=== PATIENT | female | born 1980 | race Caucasian/White ===

== ENCOUNTER 2021-06-29 13:58 | Outpatient (REF) | payer OTHER, SELFPAY ==
--- NOTE | ~2021-06-29 | XR_ITS ---
EXAMINATION: XR KNEE, LEFT CLINICAL INFORMATION: Knee pain COMPARISON: None TECHNIQUE: Four views of the left knee. FINDINGS: Bones and soft tissues are normal. No fracture or joint effusion. Alignment is anatomic. Joint spaces are well maintained. Mild lateral patellar tilt. No abnormal soft tissue calcification. XR/XR knee LT 4V IMPRESSION: No acute osseous abnormality
== END 2021-06-29 13:59 | disposition home or self-care (01) ==
LOC: HO.XRAY 13:58
PROVIDERS: PCP Physician Assistant; Visit Provider Nurse Practitioner Family
DX: M25.562 Pain in left knee (principal)
CPT/HCPCS: 73564

== ENCOUNTER 2021-07-25 13:00 | Outpatient (RCR) | payer OTHER, SELFPAY ==
--- NOTE | 2021-08-22 08:56 | MHC.PT.DC ---
[facility] [place] Office [place] Office [place] Office [address] Ev Walker [address] [phone] F: [phone] F: [phone] F: [phone] F: [phone] Physical Therapy Discharge Report Diagnosis: CERVICALGIA Date of Surgery: NA Date of Evaluation: 07/11/21 Date of Discharge: 08/22/21 Treatments to Date: 2 Cancellations to Date: 3 No Shows to Date: Discharge Status: Recommend MD Follow-up Visit Non-compliance Discharge Summary: Pt SEEN FOR INIT EVAL, THEN 2 CX THEN 1 FU (PER THAT ASSESSMENT...GOOD PERF STRETCHES/EXS, RELIEF WITH ST ROLLING. OF NOTE SIGNIF CIGARETTE SMELL WITH Pt COUGHING DURING SESSION). THEN ANOTHER CX. WILL DC DUE TO ATTENDANCE POLICY Electronically signed by: LUCY SANDERSON PT Please sign and return to therapist. Thank you for your referral.
== END 2021-08-22 08:57 | disposition home or self-care (01) ==
LOC: HO.PTWFD 13:00
PROVIDERS: PCP Physician Assistant; Visit Provider Nurse Practitioner Family
DX: M54.2 Cervicalgia (principal)
CPT/HCPCS: 97110; 97140; 97161; 97535

== ENCOUNTER 2021-08-08 13:39 | Outpatient (REF) | payer OTHER, SELFPAY ==
--- NOTE | ~2021-08-08 | MM_ITS ---
EXAMINATION: MM SCREENING DIGITAL BREAST TOMOSYNTHESIS, BILATERAL CLINICAL INFORMATION: Screening. Asymptomatic. Family history breast cancer, mother. The lifetime risk of breast cancer based on the Tyrer-Cuzick Model is 17%. COMPARISON: Mammography: 01/13/2019 (BI-RADS 3), 01/05/2019 (baseline). TECHNIQUE: Digital breast tomosynthesis is performed in both the craniocaudal and mediolateral oblique views along with computer-aided detection (CAD). Synthesized 2D images are generated from the tomosynthesis. FINDINGS: The breasts are heterogeneously dense, which may obscure small masses (ACR BI-RADS breast composition Category c). Parenchymal pattern is similar to prior studies. There is no significant mass or architectural abnormality. There are bilateral nipple piercings. The axilla are unremarkable. Numerous calcifications are again seen predominantly upper outer quadrant, more numerous on the left. Prior mammography included subsequent magnification views with recommendation for follow-up. Patient will be requested to return for additional magnification views to allow for comparison with the prior diagnostic exam. MM/MM tomosynthesis screening BI IMPRESSION: Bilateral regional calcifications, more numerous on left. ASSESSMENT: BI-RADS 0: Incomplete - Need Additional Imaging Evaluation RECOMMENDATION: 1. Additional views of the bilateral breasts (bilateral magnification CC and bilateral magnification ML). 2. Radiology department staff will contact the patient for additional imaging. This patient's information was entered into a reminder system with a target due date for their next mammogram.
== END 2021-08-08 13:40 | disposition home or self-care (01) ==
LOC: HO.MAMMO 13:39
PROVIDERS: PCP Physician Assistant; Visit Provider Nurse Practitioner Family
DX: Z12.31 Encounter for screening mammogram for malignant neoplasm of breast (principal)
CPT/HCPCS: 77063; 77067

== ENCOUNTER 2021-08-13 14:18 | Outpatient (REF) | payer OTHER, SELFPAY ==
--- NOTE | ~2021-08-13 | MM_ITS ---
EXAMINATION: MM DIAGNOSTIC DIGITAL MAMMOGRAPHY, BILATERAL CLINICAL INFORMATION: Recall from screening for probable bilateral benign calcifications initially noted at baseline exam 2019. Family history breast cancer, mother age 57. TC score 17%. COMPARISON: Mammography: 04/07/2022, 01/13/2019 (BI-RADS 3), 01/05/2019 (BI-RADS 0, baseline). TECHNIQUE: Digital mammography is performed in the following views: Magnification right CC x2, magnification right ML x2, magnification left CC x2, magnification left ML x2. FINDINGS: The breasts are heterogeneously dense, which may obscure small masses (ACR BI-RADS breast composition Category c). The magnification views show numerous calcifications similar in number and distribution to the initial bilateral diagnostic mammography 01/13/2019. Calcifications are predominantly central upper outer quadrant. They are more numerous on the left. Some of the calcifications show layering milk of calcium. There are no interval increasing calcifications or interval pleomorphic types or ductal distribution. Calcifications are now considered to be benign. Results are discussed with the patient at time of visit. MM/MM diagnostic mammo BI IMPRESSION: Numerous bilateral calcifications similar to prior diagnostic exam 2019. ASSESSMENT: BI-RADS 2: Benign RECOMMENDATION: Routine annual mammography screening. This patient's information was entered into a reminder system with a target due date for their next mammogram.
== END 2021-08-13 14:19 | disposition home or self-care (01) ==
LOC: HO.MAMMO 14:18
PROVIDERS: Visit Provider Nurse Practitioner Family
DX: R92.1 Mammographic calcification found on diagnostic imaging of breast (principal)
CPT/HCPCS: 77066

== ENCOUNTER 2021-09-27 14:27 | Outpatient (REF) | payer OTHER, SELFPAY ==
--- NOTE | ~2021-09-27 | XR_ITS ---
EXAMINATION:XR cervical spine 3V CLINICAL INFORMATION: Cervalgia COMPARISON: None TECHNIQUE: Frontal lateral and swimmer's view and open-mouth odontoid view. FINDINGS: 7 cervical vertebrae identified maintaining normal height and alignments.. Loss of normal cervical lordosis probably spasm. Narrowing of intervertebral disc spaces at C5-C6 and C6-C7 suggests underlying mild to moderate degenerative disc disease. No prevertebral soft tissue swelling. Surrounding soft tissue and included lung apices are clear. Included lung apices are clear. XR/XR cervical spine 3V IMPRESSION: 1. No fracture. 2. Narrowing of intervertebral disc spaces suggest underlying degenerative disc disease.. 3. Loss of normal cervical lordosis probably spasm.
[2021-09-27 14:45] LABS: MANUAL DIFF FLAG NO
[2021-09-27 14:57] LABS: Basophils Absolute Auto 0.1 X10*3/uL (0.0-0.2); Eosinophils Absolute Auto 0.3 X10*3/uL (0.0-0.4); Eosinophils Percent Auto 3.5 % (0-4); Hematocrit 37.3 % (37.0-47.0); Hemoglobin 12.1 g/dl (12.0-16.0); Imm Gran Abs Auto 0.06 X10*3/uL (0.00-0.03); Imm Gran Pct Auto 0.6 % (0.0-0.4); Lymphocytes Absolute Auto 2.3 X10*3/uL (1.2-4.9); Lymphocytes Percent Auto 23.4 % (20-40); Mean Corpuscular HGB Conc 32.4 g/dl (31.0-35.0); Mean Corpuscular Hemoglobin 27.7 pg (27.0-33.0); Mean Corpuscular Volume 85.4 fL (80.0-98.0); Mean Platelet Volume 9.3 fL (9.4-12.3); Monocytes Absolute Auto 0.7 X10*3/uL (0.1-1.2); Monocytes Percent Auto 7.4 % (2-11); Neutrophils Absolute Auto 6.2 x10*3/uL (2.0-8.3); Neutrophils Percent Auto 64.1 % (45-73); Platelet Count 372 X10*3/uL (160-400); Red Blood Count 4.37 X10*6/uL (4.20-5.50); White Blood Count 9.6 X10*3/uL (4.8-10.8)
[2021-09-27 15:20] LABS: Alanine Aminotransferase 9 U/L (0-31); Albumin Level 4.2 g/dL (3.5-5.0); Alkaline Phosphatase 65 U/L (39-117); Anion Gap 15 (12-20); Aspartate Amino Transferase 14 U/L (5-31); Bilirubin Total 0.5 mg/dL (0.0-1.0); Blood Urea Nitrogen 8 mg/dL (9-16); Calcium 9.1 mg/dL (8.4-10.2); Carbon Dioxide 20 mmol/L (22-29); Chloride 108 mmol/L (96-108); Cholesterol 231 mg/dL; Estimated Glomerular Filt Rate > 60; Glucose Fasting 87 mg/dL (60-99); HDL Cholesterol 56 mg/dL; LDL Cholesterol Calculated 133 mg/dl; Potassium 4.1 mmol/L (3.3-5.1); Sodium 139 mmol/L (135-145); Total Protein 7.6 g/dL (6.5-8.0); Triglycerides 211 mg/dL
== END 2021-09-27 14:28 | disposition home or self-care (01) ==
LOC: HO.LAB 14:27
PROVIDERS: PCP Physician Assistant; Visit Provider Nurse Practitioner Family
DX: M54.2 Cervicalgia (principal); E78.00 Pure hypercholesterolemia, unspecified; I10 Essential (primary) hypertension
CPT/HCPCS: 36415; 72040; 80053; 80061; 85025

== ENCOUNTER 2021-11-02 09:42 | Outpatient (REF) | payer OTHER, SELFPAY ==
[2021-11-02 18:13] LABS: CT PCR NOT DETECTED (Not Detect.); NG PCR NOT DETECTED (Not Detect.)
[2021-11-03 13:51] LABS: BV Int Neg Control Negative (Negative); BV Int Pos Control Positive (Positive)
[2021-11-07 14:11] LABS: HPV mRNA E6/E7 rflx Not Detected (Not Detected)
== END 2021-11-02 09:43 | disposition home or self-care (01) ==
LOC: HO.LAB 09:42
PROVIDERS: PCP Physician Assistant; Visit Provider Advanced Practice Midwife
DX: Z01.411 Encounter for gynecological examination (general) (routine) with abnormal findings (principal); Z11.51 Encounter for screening for human papillomavirus (HPV); N92.0 Excessive and frequent menstruation with regular cycle; Z20.2 Contact with and (suspected) exposure to infections with a predominantly sexual mode of transmission; Z72.0 Tobacco use
CPT/HCPCS: 87480; 87491; 87510; 87591; 87624; 87660; 88142

== ENCOUNTER 2022-08-23 13:40 | Outpatient (REF) | payer OTHER, SELFPAY ==
--- NOTE | ~2022-08-23 | MM_ITS ---
EXAMINATION: MM SCREENING DIGITAL BREAST TOMOSYNTHESIS, BILATERAL CLINICAL INFORMATION: Screening. Asymptomatic. Family history breast cancer, mother. The lifetime risk of breast cancer based on the Tyrer-Cuzick Model is 17%. COMPARISON: Mammography: 08/13/2021, 08/08/2021, 07/16/2018, 01/05/2019 (baseline) TECHNIQUE: Digital breast tomosynthesis is performed in both the craniocaudal and mediolateral oblique views along with computer-aided detection (CAD). Synthesized 2D images are generated from the tomosynthesis. FINDINGS: The breasts are heterogeneously dense, which may obscure small masses (ACR BI-RADS breast composition Category c). There are numerous bilateral calcifications, similar to prior diagnostic exams. Right breast parenchymal pattern is similar to prior studies. The bilateral axilla and skin contours are unremarkable. There are bilateral nipple piercings. Left CC view has subtle nodular asymmetric density just lateral to midline upper quadrant on tomography possibly shifting fibroglandular tissue. Patient will be recalled for additional imaging to exclude developing density. MM/MM tomosynthesis screening BI IMPRESSION: Left: -Subtle nodular asymmetric density central outer breast on CC tomography, possibly shifting fibroglandular tissue. Right: -No significant changes from prior studies. ASSESSMENT: BI-RADS 0: Incomplete - Need Additional Imaging Evaluation RECOMMENDATION: 1. Additional views left breast (spot CC, rolled CC x2). 2. Targeted ultrasound if warranted after review of the additional views. 3. Radiology department staff will contact the patient for additional imaging. This patient's information was entered into a reminder system with a target due date for their next mammogram.
== END 2022-08-23 13:41 | disposition home or self-care (01) ==
LOC: HO.MAMMO 13:40
PROVIDERS: PCP Physician Assistant; Visit Provider Physician Assistant
DX: Z12.31 Encounter for screening mammogram for malignant neoplasm of breast (principal)
CPT/HCPCS: 77063; 77067

== ENCOUNTER 2022-09-19 13:25 | Outpatient (REF) | payer OTHER, SELFPAY ==
--- NOTE | ~2022-09-19 | MM_ITS ---
EXAMINATION: MM DIAGNOSTIC DIGITAL BREAST TOMOSYNTHESIS, LEFT US DIAGNOSTIC ULTRASOUND BREAST, LEFT CLINICAL INFORMATION: Recall from screening for subtle nodular asymmetric density central outer left breast on CC tomography. Family history breast cancer, mother. TC score 17%. COMPARISON: Mammography: 08/23/2022, 08/13/2021, 08/08/2021, 01/13/2019, 01/05/2019 (baseline) TECHNIQUE: Digital breast tomosynthesis is performed. 2D images are generated from the tomosynthesis. The following views are obtained: Rolled CC x2, spot CC. Ultrasound left breast is targeted to the upper and outer breast using grayscale imaging and color Doppler without and with harmonics. FINDINGS: The breasts are heterogeneously dense, which may obscure small masses (ACR BI-RADS breast composition Category c). The additional views suggest a small oval partly obscured nodule in the area for recall under 1 cm. No architectural abnormality. No focal duct ectasia. Ultrasound demonstrates scattered simple cysts, largest 0.8 cm corresponding to the nodularity on mammography. The cysts show increased through-transmission of sound and no associated solid component or color flow. There is no solid mass or architectural abnormality. Results are discussed with the patient at time of visit. MM/MM tomosynthesis added views L IMPRESSION: Incidental cysts, largest approximately 0.8 cm, corresponding to recent mammography. ASSESSMENT: BI-RADS 2: Benign RECOMMENDATION: Routine annual mammography screening. This patient's information was entered into a reminder system with a target due date for their next mammogram.
== END 2022-09-19 13:26 | disposition home or self-care (01) ==
LOC: HO.MAMMO 13:25
PROVIDERS: PCP Physician Assistant; Visit Provider Physician Assistant
DX: R92.2 Inconclusive mammogram (principal)
CPT/HCPCS: 76642; 77061; 77065

== ENCOUNTER 2023-08-29 13:59 | Outpatient (REF) | payer OTHER, SELFPAY ==
--- NOTE | ~2023-08-29 | MM_ITS ---
EXAMINATION: MM SCREENING DIGITAL BREAST TOMOSYNTHESIS, BILATERAL CLINICAL INFORMATION: Screening. Asymptomatic. COMPARISON: Mammography: This study is compared with prior exams dating back to 2019. TECHNIQUE: Digital breast tomosynthesis is performed in both the craniocaudal and mediolateral oblique views along with computer-aided detection (CAD). Synthesized 2D images are generated from the tomosynthesis. FINDINGS: There are scattered areas of fibroglandular density (ACR BI-RADS breast composition Category b). There are no significant masses, abnormal calcifications, or other abnormalities. There are bilateral, unchanged, benign calcifications. The patient has bilateral nipple rings. MM/MM tomosynthesis screening BI IMPRESSION: No mammographic evidence of malignancy. ASSESSMENT: BI-RADS BI-RADS 2 - Benign Findings RECOMMENDATION: Routine annual mammography screening. 1 year F/U This examination should not preclude the clinical evaluation of a suspicious palpable abnormality. This patient's information was entered into a reminder system with a target due date for their next mammogram.
== END 2023-08-29 14:00 | disposition home or self-care (01) ==
LOC: HO.MAMMO 13:59
PROVIDERS: PCP Physician Assistant; Visit Provider Physician Assistant
DX: Z12.31 Encounter for screening mammogram for malignant neoplasm of breast (principal)
CPT/HCPCS: 77063; 77067

== ENCOUNTER → 2023-08-29 14:00 | Outpatient (BNV) | payer OTHER, SELFPAY | PROVIDERS: PCP Physician Assistant; Visit Provider Radiology Diagnostic Radiology | DX: Z12.31 Encounter for screening mammogram for malignant neoplasm of breast (principal) | CPT/HCPCS: 77063; 77067 ==

== ENCOUNTER 2024-05-05 16:12 | Outpatient (AMB) | payer OTHER, SELFPAY ==
--- NOTE | 2024-05-05 16:15 | A.OFFPC_ITS ---
Vital Signs 05/05/24 16:16 Height 5 ft 3 in Weight 160 lb 6 oz BMI 28.4 BP 100/78 Blood Pressure Location Lt brachial Position Sitting Pulse 98 Pulse Source Pulse Oximeter Pulse Oximetry (%) 70 L Oxygen Delivery Method Room Air Intake Visit Reasons: annual exam Dye Weigher Required: No Accompanied by: Self / Same As Patient Allergies banana Allergy (Severe, Verified 05/05/24 16:56) Hives bupropion [From Wellbutrin] Adverse Reaction (Mild, Verified 05/05/24 16:56) GI upset Medication List - Last Reconciled 05/05/24 by Rah Leiva MD No Known Home Meds Tobacco use date assessed: 05/05/24 Dental Screening Dental Screen Date: 05/05/24 Did you have a dental visit in the last 12 months?: No Did you have a dental problem in the last 6 months where you did not have access to dental care?: No Was dental information given to patient?: Patient has dentist HPI annual exam HPI Details Patient comes in today for her annual physical examination States that she has been experiencing increased pain in both feet for a while now - notes that the pain feels worse in the morning and is mostly localized near the heel areas She denies any recent injury or trauma to her foot She also continues to experience recurrent pain over several other joints often, including her elbows, wrists and knees - states that she has been experiencing recurrent joint pains for a few years now States that she feels okay otherwise She denies any headaches or dizziness Denies any chest pains, no increased SOB No nausea/vomiting, no abdominal pain No change in bowel habits noted She denies any acute urinary symptoms Adds that she has a hyperpigmented lesion on her left forearm that has been present for weeks now and she would like to see someone about having it removed if possible She would also like to get a referral to gynecology as she has not had her pap smear and gynecology exam done in a few years She had her mammography done back in August 2023 so she is up-to-date on her breast cancer screening [facility] Medical History Overweight (BMI 25.0-29.9) Smoker Surgical History History of facial surgery Hx of section Family History Mother Dementia Breast cancer Lung cancer Father Heart attack, Onset Age: 53 HTN (hypertension) Social History (Updated 05/09/24 @ 17:41 by Rah Leiva MD) Household Members: Significant Other Household Members Other:: 2 roomates Housing: House Alcohol intake: current Alcohol intake frequency: 0-2 drinks per day Alcohol type: wine and other Patient Tobacco Use Status: Current everyday Tobacco user Tobacco use type: Cigarette Cigarettes Per Day: 15 Years Smoked: 25 e-Cigarette/Vaping Use: Currently Using service: No Current occupational status: unemployed Cognitive needs: No Hearing needs: No Vision needs: No Female Reproductive History Menstrual Age of Menarche: 9 Questionnaire PHQ-9 Over the last 2 weeks, how often have you been bothered by any of the following problems? 1. Little interest or pleasure in doing things: more than half the days 2. Feeling down, depressed, or hopeless: more than half the days 3. Trouble falling or staying asleep, or sleeping too much: more than half the days 4. Feeling tired or having little energy: more than half the days 5. Poor appetite or overeating: more than half the days 6. Feeling bad about yourself - or that you are a failure or have let yourself or your family down: more than half the days 7. Trouble concentrating on things, such as reading the newspaper or watching television: more than half the days 8. Moving or speaking so slowly that other people could have noticed. Or the opposite - being so fidgety or restless that you have been moving around a lot more than usual: not at all 9. Thoughts that you would be better off or of hurting yourself in some way: not at all Total score: 14 Depression Screening Interpretation: Positive Depression Screening Follow-up: Existing condition and In treatment Depression Screening Done: Yes 98998 - PHQ-9 Billing: Yes Source: Developed by Drs. Jaime Rachel, Negin Talavera, Austin Malik and colleagues, with an educational mihai from [employer]. Thrive Questionnaire Date Thrive assessed: 05/05/24 I am a: Patient What is your living situation today?: I do not have a steady places to live I am staying at a hotel Within the past 12 months, did the food you bought not last and you didn't have the money to get more?: Sometimes True Within the past 12 months, did you worry whether your food would run out before you got money to buy more?: Sometimes True Do you have trouble paying for medicines?: No Do you have trouble getting transportation to medical appointments?: No Do you have trouble paying your heating and electricity bill?: Yes Do you have trouble taking care of your child, family member or friend?: I choose not to answer this question Do you have trouble with day-to-day activities such as bathing, preparing meals, shopping, managing finances, etc.?: No Are you currently unemployed and looking for a job?: No Are you interested in more education?: No Please select the resources that you would like help with: Housing/Group Home Currently or been in a relationship where the following occur: I choose not to answer THRIVE Score: 4 AUDIT C Alcohol Use Questionnaire (AUDIT-C) 1. How often do you have a drink containing alcohol?: 4 or more times a week 2. How many drinks containing alcohol do you have on a typical day when you are drinking?: 3 or 4 3. How often do you have six or more drinks on one occasion?: Never Total Score: 5 Score Reviewed/Action Taken: Yes [place]-7 AMB Questionnaire [place]-7 Date [place] - 7 assessed: 05/05/24 Feeling nervous, anxious, or on edge: 2 = More than half the days Not being able to stop or control worryin = More than half the days Worrying too much about different things: 2 = More than half the days Trouble relaxin = More than half the days Being so restless that it is hard to sit still: 0 = Not at all Becoming easily annoyed or irritable: 2 = More than half the days Feeling afraid as if something awful might happen: 2 = More than half the days Total [place]-7 score (0-4 normal; 5-9 mild; 10-14 moderate; 15-21 severe): 12 Source: Developed by Drs. Jaime Rachel, Negin Talavera, Austin Malik and colleagues, with an educational mihai from [employer]. Review of Systems Const Denies chills, Denies fatigue, Denies fever(s), Denies headache(s) and Denies malaise Eyes Denies blurry vision, Denies change in vision, Denies irritation and Denies itchy eyes ENT Denies dysphagia, Denies dizziness, Denies otalgia, Denies headache(s), Reports nasal congestion (at times), Denies neck pain, Denies odynophagia, Denies sinus pain and Denies sore throat Card Denies chest pain, Denies rapid heart rate, Denies irregular heart rhythm, Denies palpitations and Denies dyspnea Resp Denies chest congestion, Reports cough (on and off, mostly non-productive), Denies pain with cough, Denies dyspnea and Denies wheezing GI Denies abdominal pain, Denies bloating, Denies constipation, Denies dysphagia, Denies heartburn, Denies diarrhea, Denies nausea, Denies odynophagia and Denies vomiting Denies hematuria, Denies urinary frequency, Denies dysuria, Denies urinary incontinence and Denies urinary urgency Musc Details: (+) pain over the top of the left foot Denies back pain, Reports arthralgias (recurrent, involving multiple joints), Denies joint swelling, Denies muscle weakness and Denies neck pain Skin/Breast Details: (+) hyperpigmented lesion on the left forearm Denies breast pain, Denies breast mass, Denies change in pigmentation, Denies rash and Denies unusual bruising Neuro Denies dizziness, Denies headache(s) and Denies paresthesias Psych Denies anxiety and Denies depression Endo Denies fatigue and Denies palpitations Rancho/Lymph Denies easy bruising Aller/Immun Denies itchy eyes and Denies wheezing Physical exam (Primary Care) Vital Signs: Last Vital Signs Pulse 98 05/05/24 16:16 BP 100/78 05/05/24 16:16 Pulse Ox 70 L 05/05/24 16:16 Oxygen Delivery Method Room Air 05/05/24 16:16 BMI result Body Mass Index 28.4 Tobacco/Smoking Status: Tobacco use Status Tobacco use date assessed 05/05/24 05/05/24 16:17 Patient Tobacco Use Status Current everyday Tobacco 05/05/24 16:17 Tobacco use type Cigarette 05/05/24 17:03 e-Cigarette/Vaping Use Currently Using 05/05/24 17:03 PHQ-9: PHQ-9 Score PHQ-9: Total score 14 05/08/24 23:21 Depression Screening Interpretation: Positive Depression Screening Follow-up: Existing condition and In treatment Thrive Assessment: Date of Thrive Assessment Date Thrive assessed 05/05/24 05/05/24 16:17 Currently or been in a relationship where the following occur: I choose not to answer Const General: no acute distress, alert and awake Orientation/consciousness: patient oriented x3 HENMT Head: Yes normocephalic and Yes atraumatic Ears: external ears normal, TM's normal bilaterally and EAC's normal General nose exam: No nasal discharge present Face and sinus: Yes normal facial exam and Yes sinuses nontender Teeth and gingiva: dentition normal Throat: Yes posterior oropharynx normal and Yes tonsils normal (no TP congestion) Eyes Eyelids: Yes eyelids normal Conjunctivae: conjunctivae normal Pupils: Equal, round and reactive pupils present EOM: EOMs intact bilaterally Neck Neck: Yes no lymphadenopathy and Yes supple Thyroid: Thyroid normal Resp Auscultation: no rales, rhonchi (occasional) throughout, no wheezes and diminished lung sounds (slightly) bilateral Cardio Rate: regular rate Rhythm: regular rhythm Heart sounds: no murmurs GI Palpation (GI): Soft to palpation, nontender and No hepatosplenomegaly present Auscultation: normal bowel sounds General: Yes no CVA tenderness Back/Spine/Pelvis Back: no CVA tenderness Thoracic/Lumbar Spine: thoracic and lumbar spine normal to inspection Skin Other: (+) small hyperpigmented flat lesion on the distal left forearm Rashes: no rashes Neuro General: patient oriented x3, moves all extremities, no focal motor deficits and CN's II-XI intact bilaterally Cranial nerves: Yes Equal, round and reactive pupils present Cognition (Neuro): normal cognition Gait exam (Neuro): Normal gait present Extrem General: Yes no clubbing, cyanosis or edema Right lower extremity: foot Details: tenderness (mild) Location: of the plantar foot and of the calcaneus Left lower extremity: foot Details: tenderness Location: of the plantar foot and of the calcaneus Coding Level of Care Code Est Pt Prev Care 40-64y(33444) Diagnoses Annual physical exam Z00.00 Pain in both feet M79.671; M79.672 Arthralgia, unspecified joint M25.50 Joint pain location: unspecified Hyperpigmented skin lesion L81.9 Allergic rhinitis, unspecified seasonality, unspecified trigger J30.9 Allergic rhinitis trigger: unspecified Allergic rhinitis seasonality: unspecified Smoker F17.200 Overweight (BMI 25.0-29.9) E66.3 Cervical cancer screening Z12.4 Additional Codes PHQ-9 - 46578 - PHQ-9 Billing: Yes ([id number]) Assessment & Plan Assessment & Plan (1) Annual physical exam: Code(s): Z00.00 - Encounter for general adult medical examination without abnormal findin gs Category: Medical Plan: Check labs She is up-to-date with her annual mammogram She has not had her gynecology exam and pap smear done in a few years now and will be referred for these She is not yet due for colon cancer screening - will start next year when she turns 44 y/o (2) Pain in both feet: Code(s): M79.671 - Pain in right foot; M79.672 - Pain in left foot Category: Medical Plan: Will send patient for x-rays of both feet for further evaluation - suspect that she may have either plantar fasciitis or calcaneal spurs and may need referral to podiatry later on (3) Arthralgia: Code(s): M25.50 - Pain in unspecified joint Category: Medical Qualifiers: Joint pain location: unspecified Qualified Code(s): M25.50 - Pain in unspecified joint Plan: Involving multiple joints Will send patient for some additional labs for further evaluation/work up of her arthralgia, especially to assess for or r/o inflammatory joint disease in general Will start her on Diclofenac gel 3% to apply to painful joints BID PRN (4) Hyperpigmented skin lesion: Code(s): L81.9 - Disorder of pigmentation, unspecified Category: Medical Plan: Will refer her to dermatology for further evaluation and management (5) Allergic rhinitis: Code(s): J30.9 - Allergic rhinitis, unspecified Category: Medical Qualifiers: Allergic rhinitis trigger: unspecified Allergic rhinitis seasonality: unspecified Qualified Code(s): J30.9 - Allergic rhinitis, unspecified Plan: Will start her on a trial of Fluticasone 50 mcg nasal spray QD PRN to see if this will help with her on and off nasal drainage and congestion as well as her recurrent non-productive cough lately (6) Smoker: Code(s): F17.200 - Nicotine dependence, unspecified, uncomplicated Category: Social Hx Plan: Patient is counseled on smoking cessation Advised that her recurrent cough may also be due to her smoking Will send her for chest x-rays to assess her recurrent non-productive cough, which she's had for a while now, especially with slightly diminished breath sounds noted on chest auscultation today (7) Overweight (BMI 25.0-29.9): Code(s): E66.3 - Overweight Category: Medical Plan: Reinforced diet/exercise as tolerated/lose weight (8) Cervical cancer screening: Code(s): Z12.4 - Encounter for screening for malignant neoplasm of cervix Category: Medical Plan: Will refer her to gynecology to get her annual gynecology exam and pap smear updated [facility] Plan Follow up with her PCP ([facility]) in 4 months Orders: Orders 2 XR foot LT min 3V 05/05/24 M79.672 - Pain in left foot Complete Blood Count Auto Diff 05/05/24 D64.9 - Anemia, unspecified, Z00.00 - Encounter for general adult medical examination without abnormal findings Lipid Panel 05/05/24 E78.00 - Pure hypercholesterolemia, unspecified, Z00.00 - Encounter for general adult medical examination without abnormal findings TSH reflex Free T4 05/05/24 E78.00 - Pure hypercholesterolemia, unspecified, Z00.00 - Encounter for general adult medical examination without abnormal findings UA CC w/rflx Micro + Cult 05/05/24 R30.0 - Dysuria, Z00.00 - Encounter for general adult medical examination without abnormal findings Erythrocyte Sedimentation Rate 05/05/24 M25.50 - Pain in unspecified joint, M79.7 - Fibromyalgia C Reactive Protein 05/05/24 M25.50 - Pain in unspecified joint PAYTON Reflex Titer and Pattern 05/05/24 M25.50 - Pain in unspecified joint Rheumatoid Factor 05/05/24 M25.50 - Pain in unspecified joint XR chest 2V 05/05/24 F17.200 - Nicotine dependence, unspecified, uncomplicated, R05.9 - Cough, unspecified, R09.89 - Other specified symptoms and signs involving the circulatory and respiratory systems XR foot RT min 3V 05/05/24 M79.671 - Pain in right foot Comprehensive [place]. Panel Fast 05/05/24 E78.00 - Pure hypercholesterolemia, unspecified, Z00.00 - Encounter for general adult medical examination without abnormal findings Vitamin D 25-OH Total 05/05/24 E55.9 - Vitamin D deficiency, unspecified, Z00.00 - Encounter for general adult medical examination without abnormal findings Referrals Dermatology Referral L98.9 - Disorder of the skin and subcutaneous tissue, unspecified MANAGER MAINTENANCE Referral Z12.4 - Encounter for screening for malignant neoplasm of cervix Medications: New diclofenac sodium 3% 1 appl topical BID PRN 100 grams 3RF joint pains fluticasone propionate 50 mcg/actuation administer into each nostril 2 sprays intranasal DAILY 30 days PRN 16 grams 5RF allergy symptoms
[2024-05-05 16:16] VITALS: BP 100/78; PULSE 98; O2SAT 70; BMI 28.4
== END 2024-05-05 17:23 | disposition home or self-care (01) ==
PROVIDERS: PCP Physician Assistant; Visit Provider Internal Medicine
DX: Z00.00 Encounter for general adult medical examination without abnormal findings (principal); M79.671 Pain in right foot; M79.672 Pain in left foot; M25.50 Pain in unspecified joint; L81.9 Disorder of pigmentation, unspecified; J30.9 Allergic rhinitis, unspecified; F17.200 Nicotine dependence, unspecified, uncomplicated; E66.3 Overweight; Z12.4 Encounter for screening for malignant neoplasm of cervix

== ENCOUNTER → 2024-05-05 16:12 | Outpatient (BNVA) | payer OTHER, SELFPAY | PROVIDERS: PCP Physician Assistant; Visit Provider Internal Medicine | DX: Z00.00 Encounter for general adult medical examination without abnormal findings (principal); M79.671 Pain in right foot; M79.672 Pain in left foot; M25.50 Pain in unspecified joint; L81.9 Disorder of pigmentation, unspecified; J30.9 Allergic rhinitis, unspecified; E66.3 Overweight; F17.200 Nicotine dependence, unspecified, uncomplicated; Z71.6 Tobacco abuse counseling | CPT/HCPCS: 96127; 99396 ==

== ENCOUNTER 2024-06-01 12:20 | Outpatient (REF) | payer OTHER, SELFPAY ==
[2024-06-01 12:39] LABS: MANUAL DIFF FLAG NO
[2024-06-01 13:44] LABS: Basophils Absolute Auto 0.1 X10*3/uL (0.0-0.2); Basophils Percent Auto 1.6 % (0-2); Eosinophils Absolute Auto 0.5 X10*3/uL (0.0-0.4); Eosinophils Percent Auto 5.8 % (0-4); Hematocrit 30.9 % (37.0-47.0); Hemoglobin 9.1 g/dl (12.0-16.0); Imm Gran Abs Auto 0.03 X10*3/uL (0.00-0.03); Imm Gran Pct Auto 0.4 % (0.0-0.4); Lymphocytes Absolute Auto 2.2 X10*3/uL (1.2-4.9); Lymphocytes Percent Auto 27.1 % (20-40); Mean Corpuscular HGB Conc 29.4 g/dl (31.0-35.0); Mean Corpuscular Hemoglobin 21.8 pg (27.0-33.0); Mean Corpuscular Volume 73.9 fL (80.0-98.0); Mean Platelet Volume 9.4 fL (9.4-12.3); Monocytes Absolute Auto 0.7 X10*3/uL (0.1-1.2); Monocytes Percent Auto 7.9 % (2-11); Neutrophils Absolute Auto 4.7 x10*3/uL (2.0-8.3); Neutrophils Percent Auto 57.2 % (45-73); Platelet Count 457 X10*3/uL (160-400); Red Blood Count 4.18 X10*6/uL (4.20-5.50); Red Cell Distribution Width 18.5 % (11.0-16.0); White Blood Count 8.3 X10*3/uL (4.8-10.8)
[2024-06-01 13:51] LABS: Appearance Urine Clear; Color Urine Yellow; Glucose Urine UA Negative (Negative); Leukocyte Esterase Urine Negative (Negative); Nitrite Urine Negative (Negative); Specific Gravity - Urine 1.015 (1.005-1.025); Urine Blood Negative (Negative); Urine Ketones Negative (Negative); Urine Protein Negative (Neg-Trace)
[2024-06-01 14:10] LABS: Rheumatoid Factor < 13.0 IU/mL (<15.0)
[2024-06-01 14:23] LABS: Alanine Aminotransferase 13 U/L (0-31); Alkaline Phosphatase 60 U/L (39-117); Anion Gap 9 (12-20); Aspartate Amino Transferase 16 U/L (5-31); Bilirubin Total 0.2 mg/dL (0.0-1.0); Blood Urea Nitrogen 7 mg/dL (9-16); C Reactive Protein < 0.10 mg/dL (< or = 0.50); Calcium 8.2 mg/dL (8.4-10.2); Carbon Dioxide 24 mmol/L (22-29); Chloride 108 mmol/L (96-108); Cholesterol 176 mg/dL (<200); Estimated Glomerular Filt Rate > 60; Glucose Fasting 84 mg/dL (60-99); HDL Cholesterol 62 mg/dL (>40); LDL Cholesterol Calculated 75 mg/dL (<100); Potassium 3.9 mmol/L (3.3-5.1); Sodium 137 mmol/L (135-145); Total Protein 6.9 g/dL (6.5-8.0); Triglycerides 199 mg/dL (<150)
[2024-06-01 14:25] LABS: Erythrocyte Sedimentation Rate 8 MM/HR (0-20)
[2024-06-01 14:39] LABS: TSH reflex Free T4 1.62 uIU/mL (0.32-4.0); Vitamin D 25-OH Total 10.6 ng/mL (>30)
[2024-06-04 15:23] LABS: Anti Nuclear Antibody Screen NEGATIVE (NEGATIVE)
== END 2024-06-01 12:21 | disposition home or self-care (01) ==
LOC: HO.XRAY 12:20
PROVIDERS: PCP Physician Assistant; Visit Provider Internal Medicine
DX: F17.200 Nicotine dependence, unspecified, uncomplicated (principal); Z00.00 Encounter for general adult medical examination without abnormal findings; D64.9 Anemia, unspecified; E78.00 Pure hypercholesterolemia, unspecified; M79.7 Fibromyalgia; M25.50 Pain in unspecified joint; E55.9 Vitamin D deficiency, unspecified; R30.0 Dysuria; M79.672 Pain in left foot; R09.89 Other specified symptoms and signs involving the circulatory and respiratory systems; R05.9 Cough, unspecified; M79.671 Pain in right foot
CPT/HCPCS: 36415; 71046; 73630; 80053; 80061; 81003; 82306; 84443; 85025; 85652; 86038; 86140; 86431

== ENCOUNTER 2024-09-02 15:32 | Outpatient (AMB) | payer OTHER, SELFPAY ==
[2024-09-02 15:37] VITALS: BP 130/68; PULSE 78; TEMP 36.3; O2SAT 98; BMI 28.7
--- NOTE | 2024-09-02 15:37 | A.OFFPC_ITS ---
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 Recent labs shows laboratory evidence of low red blood cell count, hemoglobin, and microcytic anemia, suggesting potential iron deficiency. Identified lifestyle and dietary habits during this period, including insufficient vegetable intake and heightened stress, may have contributed. She acknowledges a persistent lack of adequate sun exposure during winter, likely leading to her vitamin D deficiency. Additionally, she reports ongoing throat discomfort and scratchiness, first observed during the winter. Her history of increased tobacco use and recurrent infections could indicate underlying allergic or irritative causes for her symptoms. Recently, she has been reducing her smoking habits significantly. [facility] Medical History Overweight (BMI 25.0-29.9) Smoker Surgical History History of facial surgery Hx of section Family History Mother Dementia Breast cancer Lung cancer Father Heart attack, Onset Age: 53 HTN (hypertension) Social History Household Members: Significant Other Household Members Other:: 2 roomates Housing: House Alcohol intake: current Alcohol intake frequency: 0-2 drinks per day Alcohol type: wine and other Patient Tobacco Use Status: Current everyday Tobacco user Tobacco use type: Cigarette Cigarettes Per Day: 7 Years Smoked: 25 Packs per year/per ci.75 e-Cigarette/Vaping Use: Currently Using service: No Current occupational status: unemployed Cognitive needs: No Hearing needs: No Vision needs: No Female Reproductive History Menstrual Age of Menarche: 9 Questionnaire PHQ-9 Over the last 2 weeks, how often have you been bothered by any of the following problems? 1. Little interest or pleasure in doing things: not at all 2. Feeling down, depressed, or hopeless: not at all 3. Trouble falling or staying asleep, or sleeping too much: not at all 4. Feeling tired or having little energy: not at all 5. Poor appetite or overeating: not at all 6. Feeling bad about yourself - or that you are a failure or have let yourself or your family down: not at all 7. Trouble concentrating on things, such as reading the newspaper or watching television: not at all 8. Moving or speaking so slowly that other people could have noticed. Or the opposite - being so fidgety or restless that you have been moving around a lot more than usual: not at all 9. Thoughts that you would be better off or of hurting yourself in some way: not at all Total score: 0 Depression Screening Interpretation: Negative Depression Screening Done: Yes 64611 - PHQ-9 Billing: Yes Source: Developed by Drs. Jaime Rachel, Negin Talavera, Austin Malik and colleagues, with an educational mihai from [employer]. Thrive Questionnaire Date Thrive assessed: 09/02/24 I am a: Patient What is your living situation today?: I do not have a steady places to live I am staying at a hotel Within the past 12 months, did the food you bought not last and you didn't have the money to get more?: Sometimes True Within the past 12 months, did you worry whether your food would run out before you got money to buy more?: Sometimes True Do you have trouble paying for medicines?: No Do you have trouble getting transportation to medical appointments?: No Do you have trouble paying your heating and electricity bill?: Yes Do you have trouble taking care of your child, family member or friend?: I choose not to answer this question Do you have trouble with day-to-day activities such as bathing, preparing meals, shopping, managing finances, etc.?: No Are you currently unemployed and looking for a job?: No Are you interested in more education?: No Please select the resources that you would like help with: Housing/Snf Currently or been in a relationship where the following occur: I choose not to answer THRIVE Score: 4 AUDIT C Alcohol Use Questionnaire (AUDIT-C) 1. How often do you have a drink containing alcohol?: 4 or more times a week 2. How many drinks containing alcohol do you have on a typical day when you are drinking?: 3 or 4 3. How often do you have six or more drinks on one occasion?: Never Total Score: 5 Score Reviewed/Action Taken: Yes FLOR[place]-7 AMB Questionnaire FLOR[place]-7 Date FLOR[place] - 7 assessed: 09/02/24 Feeling nervous, anxious, or on edge: 0 = Not at all Not being able to stop or control worryin = Not at all Worrying too much about different things: 0 = Not at all Trouble relaxin = Not at all Being so restless that it is hard to sit still: 0 = Not at all Becoming easily annoyed or irritable: 0 = Not at all Feeling afraid as if something awful might happen: 0 = Not at all Total [place]-7 score (0-4 normal; 5-9 mild; 10-14 moderate; 15-21 severe): 0 Source: Developed by Drs. Jaime Rachel, Negin Talavera, Austin Malik and colleagues, with an educational mihai from [employer]. [place]-7 Assessment Billing [place]-7 Assessment Tool: [place]-7 Assessment 08157 Review of Systems Const Denies headache(s) Eyes Denies loss of vision ENT Denies vertigo, Denies dizziness, Denies headache(s) and Denies sore throat Card Denies chest pain, Denies leg edema and Denies lightheadedness Resp Denies cough, Denies hemoptysis and Denies wheezing GI Denies abdominal pain, Denies melena, Denies constipation, Denies diarrhea and Denies vomiting Denies urinary frequency, Denies dysuria and Denies urinary urgency Musc Denies arthralgias, Denies joint swelling, Denies numbness and Denies tingling Neuro Denies Abnormal speech present, Denies behavioral changes, Denies vertigo, Denies dizziness, Denies headache(s), Denies loss of vision, Denies memory loss, Denies numbness and Denies tingling Psych Denies anxiety, Denies behavioral changes, Denies depression, Denies memory loss and Denies panic attacks Rancho/Lymph Denies easy bleeding and Denies easy bruising Aller/Immun Denies wheezing Physical exam (Primary Care) Vital Signs: Last Vital Signs Temp 97.3 F 09/02/24 15:37 Pulse 78 09/02/24 15:37 BP 130/68 09/02/24 15:37 Pulse Ox 98 09/02/24 15:37 Oxygen Delivery Method Room Air 09/02/24 15:37 BMI result Body Mass Index 28.7 Tobacco/Smoking Status: Tobacco use Status Tobacco use date assessed 09/02/24 09/02/24 15:42 Patient Tobacco Use Status Current everyday Tobacco 09/02/24 15:37 Tobacco use type Cigarette 09/02/24 15:37 e-Cigarette/Vaping Use Currently Using 09/02/24 15:37 Are you ready to quit: Yes Tobacco cessation counseling provided: Yes Items discussed: Nicotine replacement Relapse Prevention: discussed the importance of a supportive environment, discussed negative mood or depression after quitting, weight gain after smoking is common and discussed dietary, exercise and/or lifestyle changes Number of minutes spent counselin CPT code: 34704 - 4-10 Minutes PHQ-9: PHQ-9 Score PHQ-9: Total score 0 09/02/24 15:42 Depression Screening Interpretation: Negative Thrive Assessment: Date of Thrive Assessment Date Thrive assessed 09/02/24 09/02/24 15:37 Currently or been in a relationship where the following occur: I choose not to answer Const General: healthy appearing, no acute distress, alert and awake Nutritional Appearance: well nourished Orientation/consciousness: oriented to person, oriented to place and oriented to time HENDC Ears: TM's normal bilaterally General nose exam: Normal nasal mucous membranes and turbinates present Eyes Conjunctivae: conjunctivae normal Sclerae: sclerae normal Pupils: Equal, round and reactive pupils present Neck Neck: Yes no lymphadenopathy and Yes no JVD Thyroid: Thyroid normal Carotids: no bruits Neck images: 2 1. SMALL PALPABLE LYMPH NODES NOTED AT THE LEFT CERVICAL ANTERIOR REGION. Resp Effort & Inspection: normal respiratory effort and not tachypneic Auscultation: no crackles, no rales, no rhonchi and no wheezes Cardio Rate: regular rate Rhythm: regular rhythm Heart sounds: no murmurs and normal S1 and S2 GI Palpation (GI): Soft to palpation, nontender, no hepatomegaly and no splenomegaly Auscultation: normal bowel sounds Skin General skin exam: no rashes or lesions noted and dry skin Neuro General: oriented to person, oriented to place and oriented to time Cranial nerves: Yes Equal, round and reactive pupils present Speech: No Abnormal speech present Gait exam (Neuro): Normal gait present Motor exam (neuro): no tremor noted Extrem Right upper extremity: full ROM Left upper extremity: full ROM Right lower extremity: full ROM; no edema Left lower extremity: full ROM; no edema Psych Mental Status: mental status grossly normal Speech and movement: Normal speech and movement present Affect: normal affect Attitude: cooperative Thought process: Normal thought process present Coding Level of Care Code Est Pt Level 4 (48752) Diagnoses Iron deficiency anemia, unspecified iron deficiency anemia type D50.9 Anemia type: iron deficiency Iron deficiency anemia type: unspecified iron deficiency Vitamin D deficiency E55.9 Smoker F17.200 Cervical adenopathy R59.0 Additional Codes FL[place]-7 Assessment Billing - [place]-7 Assessment Tool: [place]-7 Assessment 09452 ([id number]) PHQ-9 - 02322 - PHQ-9 Billing: Yes ([id number]) Vital Signs *Quality* - CPT code: 84764 - 4-10 Minutes ([id number]) Assessment & Plan Assessment & Plan (1) Anemia: Code(s): D64.9 - Anemia, unspecified Category: Medical Qualifiers: Anemia type: iron deficiency Iron deficiency anemia type: unspecified iron deficiency Qualified Code(s): D50.9 - Iron deficiency anemia, unspecified Plan: The patient's anemia appears related to potential iron deficiency. An improved diet with iron-rich foods was recommended, and follow-up labs may be considered to evaluate her current status. (2) Vitamin D deficiency: Code(s): E55.9 - Vitamin D deficiency, unspecified Category: Medical Plan: Due to low Vitamin D levels, supplementation was advised. Emphasis was placed on increasing dietary intake and sun exposure as a natural source. (3) Smoker: Code(s): F17.200 - Nicotine dependence, unspecified, uncomplicated Category: Social Hx Plan: The patient has reduced her smoking significantly. Smoking cessation counseling included nicotine replacement therapy as needed. Continued reduction and eventual cessation are advised for her long-term health improvement. (4) Cervical adenopathy: Code(s): R59.0 - Localized enlarged lymph nodes Category: Medical Plan: Noted some mildly palpable cervical adenopathy. In the setting of tobacco use and family history of cancer will start workup with a soft tissue ultrasound evaluate her cervical adenopathy. Advised to stopped smoking. Also send for allergy testing as she may be having reactive lymph nodes from allergies. Will start allergy medication take daily. Orders: Orders 2 US soft tiss head and/or neck Today R59.0 - Localized enlarged lymph nodes IRON PROFILE Today D50.9 - Iron deficiency anemia, unspecified Vitamin D 25-OH Total Today E55.9 - Vitamin D deficiency, unspecified Complete Blood Count no Diff Today D50.9 - Iron deficiency anemia, unspecified Resp Allergy Profile Region I Today J30.9 - Allergic rhinitis, unspecified, R05.9 - Cough, unspecified Medications: New 2 loratadine (Allergy Relief (loratadine)) 10 mg PO DAILY 30 days 30 tabs 3RF J30.9 - Allergic rhinitis, unspecified
--- OUTSIDE RECORDS SUMMARY | 2024-09-02 17:50 | XMS_ITS | Clinical Summary ---
Demographics Address [address] [place] [address] Home Phone Preferred Language en Marital Status Unknown Samaritan Affiliation Unknown Race Other Race Ethnic Group Unknown Author Organization [employer] Address [address] [facility] [address] [place] [address] Care Team Providers Care Malt Loader Name Role Phone Unavailable Primary Care Provider Unavailabl e Social History Tobacco Use Types Packs/Day Years Used Date Smoking Tobacco: Never Assessed Comments Unknown Sex and Gender Information Value Date Recorded Sex Assigned at Female 08/29/2022 8:23 AM EDT Legal Sex Female 5:36 PM EDT Gender Identity Female 08/29/2022 8:23 AM EDT Sexual Orientation Choose not to disclose 2022 8:23 AM EDT Plan of Treatment Health Maintenance Due Date Last Done Comments Depression Screening 1980 HIV Screening 1980 SDOH Screening 1979 Alcohol/Substance Use Screening 1991 Tobacco Screening 1991 Family Planning (PISQ) 09/06/1994 Hepatitis C Screening 09/06/1997 DTaP/Tdap/Td Vaccines (1 - Tdap) 09/06/1998 Hepatitis B Vaccines (1 of 3 - 19+ 3-dose series) 09/06/1998 Pap Smear 09/06/2000 Cervical Cancer Screening 09/06/2009 HPV/Cotest 09/06/2009 Mammogram 2019 Dental Oral Exam 08/30/2022 03/01/2022, 05/04/2021, 10/30/2020 Dental Prophylaxis 08/30/2022 03/01/2022, 05/04/2021, 10/30/2020 Dental X-Ray: Bitewings 03/02/2023 03/01/20 22, 10/30/2020 Dental X-Ray: Full Mouth 11/01/2023 10/30/2020 COVID-19 Vaccine ( - 2023-2 5 season) 2024 Influenza Vaccine (#1) 2024 Zoster Vaccines (1 of 2) 09/06/2029 RSV Patients and Patients Aged 60 years or older (1 - 1-dose 75+ series) 09/06/2054 HIB Vaccines Aged Out No longer eligi ble based on patient's age to complete this topic HPV Vaccines Aged Out No longer eligi ble based on patient's age to complete this topic Hepatitis A Vaccines Aged Out No long er eligible based on patient's age to complete this topic IPV Vaccines Aged Out No longer eligi ble based on patient's age to complete this topic Meningococcal Vaccine Aged Out No lakeisha jess eligible based on patient's age to complete this topic Pneumococcal Vaccine: Pediatrics (0 to 5 Years) and At-Risk Patients (6 to 49) Years) Aged Out No longer eligible b ased on patient's age to complete this topic RSV under 20 months Aged Out No longe r eligible based on patient's age to complete this topic Rotavirus Vaccines Aged Out No longer eligible based on patient's age to complete this topic Procedures Procedure Name Priority Date/Time Associated Diagnosis Comments PROPHYLAXIS - ADULT Routine 03/01/2022 1 2:00 AM EDT BITEWINGS - 2 RADIOGRAPHIC IMAGES Routine 03/01/2022 12:00 AM EDT PERIODIC ORAL EVALUATION - ESTABLISHED PATIENT Routine 03/01/2022 12:00 AM EDT INTRAORAL - COMPLETE SERIES OF RADIOGRAPHIC IMAGES Routine 10/30/2020 12:00 AM EDT from Last 3 Months or Most Recently Relevant to Health Maintenance Insurance * Guarantor: Kulwant Marrero Account Type Relation to Patient Date of Phone Billing Address Dental Self 1980 [address] [place] [address] [facility] MEDICAID STAND ADULT * Guarantor: Kulwant Marrero Account Type Relation to Patient Date of Phone Billing Address Personal/Family Self [address] [place] [address] * Guarantor: Kulwant Marrero Account Type Relation to Patient Date of Phone Billing Address Personal/Family Self 1980 [address] [place] [address] * Guarantor: Kulwant Marrero Account Type Relation to Patient Date of Phone Billing Address Personal/Family Self [address] [place] [address] * Guarantor: Kulwant Marrero Account Type Relation to Patient Date of Phone Billing Address Personal/Family Self [address] [place] [address]
--- OUTSIDE RECORDS SUMMARY | 2024-09-02 17:50 | XMS_ITS | Encounter Summary ---
Demographics Address [address] [place] [address] Home Phone Preferred Language en Marital Status Unknown Yarsanism Affiliation Unknown Race Other Race Ethnic Group Unknown Author Organization [employer] Address [address] [facility] [address] [place] [address] Care Team Providers Care Heading Maker Name Role Phone Unavailable Primary Care Provider Unavailabl e Encounter Details Date Type Department Care Team (Latest Contact Info) Description 10/30/2020 Abstract [facility] CONVERSIONS Dental, Provider, DDS Social History Tobacco Use Types Packs/Day Years Used Date Smoking Tobacco: Never Assessed Comments Unknown Sex and Gender Information Value Date Recorded Sex Assigned at Female 08/29/2022 8:23 AM EDT Legal Sex Female 5:36 PM EDT Gender Identity Female 08/29/2022 8:23 AM EDT Sexual Orientation Choose not to disclose 2022 8:23 AM EDT documented as of this encounter Plan of Treatment Not on file documented as of this encounter Visit Diagnoses Not on filedocumented in this encounter
--- OUTSIDE RECORDS SUMMARY | 2024-09-02 17:50 | XMS_ITS | Encounter Summary ---
Demographics Address [address] [place] [address] Home Phone Preferred Language en Marital Status Unknown Rastafarian Affiliation Unknown Race Other Race Ethnic Group Unknown Author Organization [employer] Address [address] [facility] [address] [place] [address] Care Team Providers Care Burn Center Nurse Name Role Phone Unavailable Primary Care Provider Unavailabl e Encounter Details Date Type Department Care Team (Late st Contact Info) Description 05/29/2022 Abstract [facility] Dental [address] [place] [address] Dental, Provider, DDS Social History Tobacco Use [...]
--- OUTSIDE RECORDS SUMMARY | 2024-09-02 17:50 | XMS_ITS | Data Portability ---
Author Organization JESSICA Lindsey maco [address] Address [address] [place] [address] Assessment No assessment recorded. Plan of Treatment Reminders Order Date Submit Date Provider Last Modified By Organization Details Last Modified Time Details Appointments None recorded. Lab None recorded. Referral None recorded. Procedures None recorded. Surgeries None recorded. Imaging None recorded. Medication Orders fluticasone propionate 50 mcg/actuati on nasal spray,suspe nsion 2023 024 FER Not available 17:26:36 Patient TargetsNo targets recorded. Patient InstructionsNo instructions recorded. Reason for Referral None Reported. Problems No Known Problems Medical Equipment None Reported. Allergies No known drug allergies Medications Name Sig Start Date Stop Date Status Note LastModified by Organization Details LastModified Time benzoyl peroxide 10 % topical cleanser APPLY TO AXILLA, TRUNK, GROIN, LEGS 4 TIMES A DAY NEEDED 12/20 completed Not Available Not Available Not Available doxycycline monohydrate 100 mg tablet TAKE 1 TABLET TWICE A DAY WITH FOOD AND WATER. WEAR SUNSCREEN . 12/20 completed Not Available Not Available Not Available clindamycin 1 % topical gel APPLY TO ARM PIT, CHEST, GROIN, AND LEGS TWICE DAILY NEEDED 12/20 completed Not Available Not Available Not Available fluticasone propionate 50 mcg/actuati on nasal spray,suspe nsion [place] 2 sprays every day by intranasa l route for 90 days. 2023 active Not Available Not Available Not Avai lable Vitals Date Recorded Body height Body mass index (BMI) Body weight Pain severity - 0-10 verbal numeric rating [Score] - Reported Respiratory rate Body temperature Heart rate Oxygen saturation Oxygen saturation in Arterial blood by Pulse oximetry Systolic blood pressure Diastolic blood pressure Provider Name and Address Organization Details Last Updated DateTime 160.02 cm 30.6 kg/m2 74100.4 8 g 0 18 /min 97.3 [degF] 88 /min 98 % 98 % 137 mm[Hg] 89 mm[Hg] Ariella Marcella PA - [facility] 17:21:45 Social History Question Answer Notes LastModified by Organizat ion Details LastModified Time Tobacco Smoking Status Current Every Day Smoker Ariella henson PA - [facility] 12/21/2023 17:17:47 What Is Your Level Of Alcohol Consumption? Occasional Information not available 12/21/2023 How Many Times Per Week Do You Consume Alcohol? 3-4 Times Per Week Information not available 12/21/2023 How Many Years Have You Consumed Alcohol? 23 Information not available 12/21/2023 Are You Currently Employed? No Information not available 12/21/2023 Which Illicit Or Recreational Drugs Have You Used? Cocaine Information not available 12/21/2023 Have You Had Direct Contact, Or Contact During Intimacy, With Monkeypox Rash, Scabs, Or Body Fluids From A Person With Monkeypox? No Information not available 12/21/2023 At What Age Did You Start Smoking Tobacco? 14 Information not available 12/21/2023 How Much Tobacco Do You Smoke? 1 PPD Information not available 12/21/2023 Do You Use Any Illicit Or Recreational Drugs? Yes Information not available 12/21/2023 How Many Years Have You Smoked Tobacco? 30 Information not available 12/21/2023 Have You Recently Traveled Abroad? No Information not available 12/21/2023 Are You Currently In School? No Information not available 12/21/2023 Do You Or Have You Ever Used Any Other Forms Of Tobacco Or Nicotine? No Information not available 12/21/2023 Sex: Unknown Functional Status None recorded. Mental Status None recorded. Family History Relationship Description Onset Age of this Age Resolved Age Notes LastModified by Organization Details LastModified Time Father No current problems or disability Not available 12/2023 17:16:00 Mother No current problems or disability sharita Not available 12/2023 17:16:00 Medical History No medical history recorded. Gynecological History Statement/Question Response Date of LMP 12/07/2023 Is there any chance of ? No LMP Approximate Obstetrics History GPAL:G 0 P 0 0 0 0 Past Encounters Encounter ID Performer Location Encounter Start Date Encounter Closed Date Diagnosis/Indication Diagnosis SNOMED-CT Code Diagnosis ICD10 Code Diagnosis Note [id number] [address] [place] [phone] 06/10/2019 15:11:14 06/10/2019 16:48:25 [id number] [address] [place] [address] 04/03/2020 18:11:12 04/03/2020 19:51:35 [id number] JESISCA Massey [address] [facility] [address] [place] [address] 12/21/2023 16:57:49 12/21/2023 17:27:37 Posterior rhinorrhea [id number] R09.82 Post Nasal Drip: Glands in your nose and throat continuall y produce mucus, normally one to two quarts per day. Mucus moistens and cleans the nasal lining, moistens air, traps and clears what is inhaled, and helps fight infection. Mucus is normally swallowed unconsciou sly, but when there is a feeling of the mucus gathering in the throat or dripping from the back of your nose, it is called postnasal drip. ? WHAT ARE THE SYMPTOMS OF POST-NASAL DRIP? Symptoms of post-nasal drip can include: ? Feeling of mucus drainage into the throat ? Frequent swallowing ? Throat clearing ? Raspy or gurgling speech ? Sore irritated throat ? Feeling a lump in the throat Post-nasal drip often leads to a sore, irritated throat. Although there is usually no infection, the tonsils and other tissues in the throat may swell. This can cause discomfort or a feeling that there is a lump in the throat. Successful treatment of the post-nasal drip will usually clear up these throat symptoms. ? WHAT CAUSES POST-NASAL DRIP? Causes of post-nasal drip can include: ? Bacterial infections ? Allergies ? Vasomotor rhinitis (overly sensitive nose) ? Medication s that thicken mucus ? Gastroesop hageal reflux ? Age Thin clear secretions can be due to colds and flu, allergies, cold temperatur es, bright lights, certain foods or spices, , and other hormonal changes. Various drugs (including control pills and high blood pressure medication s) and irregular nose cartilage can also produce increased mucus. Thick secretions in winter often result from dryness in heated spaces. They can also come from sinus or nose infections and allergies, especially to foods such as dairy products. If thin secretions become thick, and turn green or yellow, it is possible that a bacterial sinus infection is developing . ? WHAT ARE THE TREATMENT OPTIONS? (ear, nose, throat specialist ) Diagnosing post-nasal drip may include a detailed ear, nose, and throat exam ? Bacterial infections are usually treated with antibiotic s, nasal spray, decongesta nts, and nasal saline irrigation s. For chronic sinusitis, surgery to open the blocked sinuses may be required. ? Allergies are best managed by avoiding the causes. Antihistam sung, decongesta nts, cromolyn and steroid nasal sprays, or oral steroids may offer relief. Some older, sedating antihistam sung may dry and thicken post-nasal secretions more; newer non-drowsy antihistam sung do not have this effect. Health Concerns Section Related Observation LastModified by Organization Detai ls LastModified Time None Recorded Concern Status LastModified by Organization Details LastModified Time None Recorded Advance Directives Directive None Recorded Payers Encounter Date Sequence Insurance Name Policy Number Policy Brody Covered Member ID Brody Member ID Guarantor Name 04/03/2020 1 [place] [facility] Kulwant Marrero [id number] Kulwant Marrero 12/21/2023 1 [facility] - HEALTH NET PLAN (MEDICAID HMO) Kulwant Marrero [id number] Kulwant Marrero Notes Date Note Type Note Provider Name and Address Organization Details Recorded Time 12/21/2023 text/html 43 y/o female here with bumps that she felt on the back of her tongue. She googled what that could be and is now very anxious. JESSICA Massey [address] [place], [address], [place] - [facility] 12/21/2023 17:28:45 OBGyn Episode No OBEpisode recorded.
== END 2024-09-02 16:06 | disposition home or self-care (01) ==
LOC: HO.HMCH 15:33
PROVIDERS: PCP Physician Assistant; Visit Provider Physician Assistant
DX: D50.9 Iron deficiency anemia, unspecified (principal); E55.9 Vitamin D deficiency, unspecified; F17.200 Nicotine dependence, unspecified, uncomplicated; R59.0 Localized enlarged lymph nodes

== ENCOUNTER 2024-09-02 15:32 | Outpatient (REF) | payer OTHER, SELFPAY ==
[2024-09-02 20:08] LABS: Hematocrit 31.8 % (37.0-47.0); Hemoglobin 9.2 g/dl (12.0-16.0); Mean Corpuscular HGB Conc 28.9 g/dl (31.0-35.0); Mean Corpuscular Hemoglobin 21.9 pg (27.0-33.0); Mean Corpuscular Volume 75.7 fL (80.0-98.0); Mean Platelet Volume 9.8 fL (9.4-12.3); Platelet Count 453 X10*3/uL (160-400); Red Cell Distribution Width 18.3 % (11.0-16.0)
[2024-09-02 20:28] LABS: Iron 14 mcg/dL (30-160); Percent Iron Saturation 4 % (15-50); Total Iron Binding Capacity 386 mcg/dL (228-428); Unsaturated Iron Binding 372 ug/dL
[2024-09-02 20:44] LABS: Vitamin D 25-OH Total 8.1 ng/mL (>30)
[2024-09-07 04:53] LABS: Class Alternaria alternata 0; Class Aspergillus fumigatus 0; Class Bermuda Grass 0/1; Class Birch 0/1; Class Cat Dander 4; Class Cladosporium herbarum 0; Class Cockroach 0/1; Class Common Ragweed 3; Class Cottonwood 1; Class Derm. pterony 0/1; Class Dermatophagoides farinae 0/1; Class Dog Dander 3; Class Elm 2; Class Maple Box Elder 1; Class Mountain Cedar 1; Class Mouse Urine Protein 2; Class Mugwort 2; Class Oak 0/1; Class Penicillium crysogenum 0; Class Rough Pigweed 0/1; Class Sheep Sorrel 0/1; Class Sycamore 2; Class Timothy Grass 1; Class Walnut Tree 0/1; Class White Ash 1; Class White Mulberry 0/1; D001 IgE D pteronyssinus 0.32 kU/L; D002 - IgE D farinae 0.24 kU/L; E005 - IgE Dog Dander 3.55 kU/L; G002 IgE Bermuda Grass 0.18 kU/L; G006 - IgE Timothy Grass 0.52 kU/L; I006-IgE Cockroach, German 0.31 kU/L; Immunoglobulin E 1039 kU/L (<OR=114); M001 IgE Penicillium chrysogen <0.10 kU/L; M002 - IgE Cladosporium herbar <0.10 kU/L; M003 - IgE Aspergillus fumigat <0.10 kU/L; M006 - IgE Alternaria alternat <0.10 kU/L; T001 IgE Maple/Box Elder 0.38 kU/L; T003 IgE Common Silver Birch 0.34 kU/L; T006 - IgE Cedar, Mountain 0.46 kU/L; T007 - IgE Oak, White 0.34 kU/L; T008 IgE Elm, American 1.46 kU/L; T010 - IgE Walnut 0.29 kU/L; T011 - IgE Maple Leaf Sycamore 2.12 kU/L; T014 - IgE Cottonwood 0.36 kU/L; T015 - IgE Ash, White 0.38 kU/L; T070 - IgE White Mulberry 0.21 kU/L; W006 - IgE Mugwort 2.74 kU/L; W014 IgE Pigweed, Common 0.12 kU/L; W018 IgE Sheep Sorrel 0.22 kU/L
== END 2024-09-02 15:33 | disposition home or self-care (01) ==
LOC: HO.LAB 15:32
PROVIDERS: PCP Physician Assistant; Visit Provider Physician Assistant
DX: D50.9 Iron deficiency anemia, unspecified (principal); E55.9 Vitamin D deficiency, unspecified; R59.0 Localized enlarged lymph nodes; J30.9 Allergic rhinitis, unspecified; R05.9 Cough, unspecified; F17.210 Nicotine dependence, cigarettes, uncomplicated
CPT/HCPCS: 36415; 82306; 82785; 83540; 85027; 86003; 96127; 99212

== ENCOUNTER 2024-09-27 14:53 | Outpatient (REF) | payer OTHER, SELFPAY ==
--- NOTE | ~2024-09-27 | US_ITS ---
EXAMINATION: US THYROID CLINICAL INFORMATION: Localized enlarged lymph nodes. COMPARISON: None available. TECHNIQUE: Linear transducer goldberg-scale and color Doppler examination with attention to neck lymph nodes an left submandibular gland was performed. FINDINGS: The left thyroid lobe is homogeneous with 2 nodules seen. 1. Cystic nodule measuring 0.58 x 0.47 x 0.43 cm in midpole. 2. Solid hyperechoic nodule close to distal mass measures 1.4 x 0.91 x 1.1 cm. The left submandibular gland is unremarkable. There is a small lymph node adjacent to the submandibular gland measuring 0.9 x 1.7 x 0.7 cm with a normal echogenic medullary. This appears benign by ultrasound. No additional lymph nodes seen. US/US soft tiss head and/or neck IMPRESSION: Benign-appearing lymph node adjacent submandibular gland. 2 nodules seen in the left thyroid lobe. Cystic and solid hypervascular nodule. Recommend biopsy of the solid hyperechoic nodule. Electronically signed by: Jose Castillo MD 09/28/2024 08:21 AM EDT
--- OUTSIDE RECORDS SUMMARY | 2024-09-27 17:26 | XMS_ITS | Encounter Summary ---
Demographics Address [address] [place] [address] Home Phone Preferred Language en Marital Status Unknown Mu-Ism Affiliation Unknown Race Other Race Ethnic Group Unknown Author Organization [id number] Address [address] [facility] [address] [place] [address] Care Team Providers Care Fiber Technologist Name Role Phone Unavailable Primary Care Provider [...]
--- OUTSIDE RECORDS SUMMARY | 2024-09-27 17:26 | XMS_ITS | Clinical Summary ---
Demographics Address [address] [place] [address] Home Phone Preferred Language en Marital Status Unknown Catholic Affiliation Unknown Race Other Race Ethnic Group Unknown Author Organization [employer] Address [address] [facility] [address] [place] [address] Care Team Providers Care Electronic Commerce Specialist Name Role Phone Unavailable Primary Care Provider [...] Health Maintenance Due Date Last Done Comments CT Colonography 1979 Colonoscopy 1979 Colorectal Cancer Screening 1979 Depression Screening 1979 FIT DNA/Cologuard 1979 FIT 1979 FOBT 1979 HIV Screening 1979 SDOH Screening 1979 Sigmoidoscopy 1979 Alcohol/Substance Use Screening 1991 Tobacco Screening [...] X-Ray: Full Mouth 11/01/2023 10/30/2020 COVID-19 Vaccine (2023-2 5 season) 2024 Influenza Vaccine (#1) 2024 [...] Phone Billing Address Dental Self 1980 [address] [place] [address] [facility] * Guarantor: Kulwant Marrero Account Type Relation to Patient Date of Phone Billing Address Personal/Family Self [address] [place] [address] * Guarantor: Kulwant Marrero Account Type Relation to Patient Date of Phone Billing Address Personal/Family Self 1980 [address] [place] [address] * Guarantor: Kulwant Marrero Account Type Relation to Patient Date of Phone Billing Address Personal/Family Self [address] [place] [address] * Guarantor: Kulwant Marrero Account Type Relation to Patient Date of Phone Billing Address Personal/Family Self [address] [place] [address]
--- OUTSIDE RECORDS SUMMARY | 2024-09-27 17:26 | XMS_ITS | Data Portability ---
Author Organization JESSICA Lindsey maco [address] Address [address] [place] [address] Assessment No assessment recorded. Plan of Treatment [...] propionate 50 mcg/actuati on nasal spray,suspe nsion [place] 2 sprays every day by intranasa l [...] Last Updated DateTime 160.02 cm 30.6 kg/m2 95329.4 8 g 0 18 /min 97.3 [degF] [...] SNOMED-CT Code Diagnosis ICD10 Code Diagnosis Note [id number] [address] [place] [address] 06/10/2019 15:11:14 06/10/2019 16:48:25 [id number] [address] [place] [phone] 04/03/2020 18:11:12 04/03/2020 19:51:35 [id number] JESSICA Massey [address] [facility] [address] [place] [address] 12/21/2023 16:57:49 12/21/2023 17:27:37 Posterior rhinorrhea [id number] R09.82 Post Nasal Drip: Glands in your [...] Member ID Guarantor Name 04/03/2020 1 [place] [facility] Kulwant Marrero [id number] Kulwant Marrero 12/21/2023 1 [facility] - HEALTH NET PLAN (MEDICAID HMO) Kulwant Marrero [id number] Kulwant Marrero Notes Date Note Type Note Provider Name and Address Organization Details Recorded Time 12/21/2023 text/html 43 y/o female here with bumps that she felt on the back of her tongue. She googled what that could be and is now very anxious. JESSICA Massey [address] [place], [address], [place] - [facility] 12/21/2023 17:28:45 OBGyn Episode No OBEpisode recorded.
--- OUTSIDE RECORDS SUMMARY | 2024-09-27 17:26 | XMS_ITS | Encounter Summary ---
Demographics Address [address] [place] [address] Home Phone Preferred Language en Marital Status Unknown Pentecostal Affiliation Unknown Race Other Race Ethnic Group Unknown Author Organization [employer] Address [address] [facility] [address] [place] [address] Care Team Providers Care Scarf And Anneal Operator Name Role Phone Unavailable Primary Care Provider Unavailabl e Encounter Details Date Type Department Care Team (Late st Contact Info) Description 05/29/2022 Abstract [facility] Dental [address] [place] [address] Dental, Provider, DDS Social History Tobacco Use [...]
== END 2024-09-27 14:54 | disposition home or self-care (01) ==
LOC: HO.US 14:53
PROVIDERS: PCP Physician Assistant; Visit Provider Physician Assistant
DX: R59.0 Localized enlarged lymph nodes (principal)
CPT/HCPCS: 76536

== ENCOUNTER → 2024-09-27 14:56 | Outpatient (BNV) | payer OTHER, SELFPAY | PROVIDERS: PCP Physician Assistant; Visit Provider Radiology Diagnostic Radiology | DX: R59.0 Localized enlarged lymph nodes (principal); E04.1 Nontoxic single thyroid nodule | CPT/HCPCS: 76536 ==

== ENCOUNTER 2024-12-07 12:48 | Outpatient (REF) | payer OTHER, SELFPAY ==
--- NOTE | ~2024-12-07 | US_ITS ---
Ultrasound-guided thyroid nodule fine needle aspiration Indication: Left thyroid nodule Procedure: Informed consent was obtained from the patient prior to the procedure. During this process, the procedure and potential alternatives were explained, along with the intended outcome and benefits. The risks of the procedure, as well as the risks of not doing the procedure, were discussed. The patient was given the opportunity to ask questions regarding the procedure and appeared competent to make medical decisions. A signed consent form which documents this discussion was placed in the medical record. A timeout was performed in the room. The patient was placed in a supine position with the neck extended. The left side of the neck and chest was prepped and draped in routine sterile fashion. 1% lidocaine was used as anesthetic. Under real-time ultrasound guidance, a 25-gauge needle was placed into the nodule and aspiration was performed. A total of 3 aspirations were performed. The specimens were placed in CytoLyt and the Affirma bottle. Postprocedure images showed no hematoma. A Band-Aid was applied to the access site. The patient tolerated the procedure well with no immediate complications. Permanent ultrasound images were archived to the procedure. US/US biopsy thyroid Impression: Left thyroid nodule fine-needle aspiration This procedure was performed by Flaco Moreno NP, and directly supervised by Cecil Coombs M.D. Electronically signed by: Cecil Coombs MD 12/09/2024 05:45 PM EDT
--- OUTSIDE RECORDS SUMMARY | 2024-12-07 14:22 | XMS_ITS | Data Portability ---
Author Organization JESSICA Lindsey maco [address] Address [address] [place] [address] Assessment No assessment recorded. Plan of Treatment [...] propionate 50 mcg/actuati on nasal spray,suspe nsion [place] 2 sprays every day by intranasa l route for 90 days. 2023 active Not Available Not Available Not Avai lable Vitals Date Recorded Body height Body mass index (BMI) Body weight Respiratory rate Body temperature Heart rate Oxygen saturation Oxygen saturation in Arterial blood by Pulse oximetry Systolic blood pressure Diastolic blood pressure Provider Name and Address Organization Details Last Updated DateTime 07/07/202 4 160.02 cm 30.6 kg/m2 37222.4 8 g 18 /min 97.3 [degF] 88 /min 98 % 98 % 137 mm[Hg] 89 mm[Hg] Ariella Gantprakash PA - [facility] 17:21:45 Social History Question Answer Notes LastModified by [employer] ion Details LastModified Time Tobacco Smoking Status Current Every Day Smoker Ariella Gantprakash henson PA - [facility] 12/21/2023 17:17:47 How Many Years Have You Consumed Alcohol? 23 Information not available 12/21/2023 Which Illicit Or [...] Smoke? 1 PPD Information not available 12/21/2023 How Many Years Have You Smoked Tobacco? 30 Information not available 12/21/2023 Have You Recently Traveled Abroad? No Information not available 12/21/2023 Are You Currently In School? No Information not available 12/21/2023 Sex: Unknown Functional Status Question Answer Note LastModified by Organizat ion Details LastModified Time How many times per week do you consume alcohol? 3-4 times per week Information not available 12/21/2023 Do you use any illicit or recreational drugs? Yes Information not available 12/21/2023 Do you or have you ever used any other forms of tobacco or nicotine? No Information not available 12/21/2023 What is your level of alcohol consumption? Occasional Information not available 12/21/2023 Are you currently employed? No Information not available 12/21/2023 Mental Status None recorded. Family History Relationship [...] SNOMED-CT Code Diagnosis ICD10 Code Diagnosis Note [id number] [facility] [address] [facility] [address] [place] [phone] 06/10/2019 15:11:14 06/10/2019 16:48:25 [id number] [facility] [address] [address] 04/03/2020 18:11:12 04/03/2020 19:51:35 [id number] JESSICA FLETCHER [address] [facility] [address] [place] [address] 12/21/2023 16:57:49 12/21/2023 17:27:37 Posterior rhinorrhea [id number] R09.82 Post Nasal Drip: Glands in your [...] your nose, it is called postnasal drip. WHAT ARE THE SYMPTOMS OF POST-NASAL DRIP? Symptoms of post-nasal drip can include: Feeling of mucus drainage into the throat Frequent swallowing Throat clearing Raspy or gurgling speech Sore irritated throat Feeling a lump in the throat Post-nasal drip often leads to a sore, irritated throat. Although there is usually no infection, the tonsils and other tissues in the throat may swell. This can cause discomfort or a feeling that there is a lump in the throat. Successful treatment of the post-nasal drip will usually clear up these throat symptoms. WHAT CAUSES POST-NASAL DRIP? Causes of post-nasal drip can include: Bacterial infections Allergies Vasomotor rhinitis (overly sensitive nose) Medicatio ns that thicken mucus Gastroeso phageal reflux Age Thin clear secretions can be due [...] a bacterial sinus infection is developing . WHAT ARE THE TREATMENT OPTIONS? (ear, nose, throat specialist ) Diagnosing post-nasal drip may include a detailed ear, nose, and throat exam Bacterial infections are usually treated with antibiotic s, nasal spray, decongesta nts, and nasal saline irrigation s. For chronic sinusitis, surgery to open the blocked sinuses may be required. Allergies are best managed by avoiding the [...] Recorded Advance Directives Directive None Recorded Payers Insurance Date Sequence Insurance Name Policy Number Policy Brody Covered Member ID Brody Member ID Guarantor Name 12/22/2023 1 [facility] - HEALTH NET PLAN (MEDICAID HMO) Kulwant Marrero [id number] Kulwant Marrero 12/21/2023 1 [place] [facility] Kulwant Marrero [id number] Kulwant Marrero Notes Date Note Type Note Provider Name and Address Organization Details Recorded Time 12/21/2023 text/html 43 y/o female here with bumps that she felt on the back of her tongue. She googled what that could be and is now very anxious. JESSICA Massey [address] [place], [address], [place] - [facility] 12/21/2023 17:28:45 OBGyn Episode No OBEpisode recorded.
[2024-12-07] MEDS: Lidocaine HCl 1 % MPF 5 ML VIAL SUBCUT (15:13)
== END 2024-12-07 12:49 | disposition home or self-care (01) ==
LOC: HO.US 12:48
PROVIDERS: PCP Physician Assistant; Visit Provider Physician Assistant
DX: E04.1 Nontoxic single thyroid nodule (principal)
CPT/HCPCS: 10005; 88173; J2003

== ENCOUNTER → 2024-12-07 12:50 | Outpatient (BNV) | payer OTHER, SELFPAY | PROVIDERS: PCP Physician Assistant | DX: E04.1 Nontoxic single thyroid nodule (principal) | CPT/HCPCS: 10005 ==